=== PATIENT | male | born 2000 | race American Indian/Alaskan Native ===

== ENCOUNTER 2022-05-24 02:31 | Emergency (ER) | payer SELFPAY ==
--- NOTE | 2022-05-24 04:06 | XRay Report ---
CHEST 2 VIEWS INDICATION / CLINICAL INFORMATION: ASTHMA. COMPARISON: None available. FINDINGS: SUPPORT DEVICES: None. HEART / MEDIASTINUM: No significant abnormality. LUNGS / PLEURA: Mild pulmonary hyperinflation, likely associated with asthma. No other acute chest pr ocess. No pneumothorax. The lungs are otherwise clear without evidence for pneumonia, pulmonary edema or pleural effusion. ADDITIONAL FINDINGS: None IMPRESSION: 1. Mild pulmonary hyperinflation, likely associated with asthma. No other acute chest process. Signer Name: Viktor Huang MD Signed: 05/24/2022 4:01 AM Workstation Name: [id number]
[2022-05-24] MEDS ORDERED: dexAMETHasone 4 MG/ML VIAL IM ONE (06:53)
[2022-05-24] MEDS ORDERED: ALBUTEROL 2.5 MG/3 ML NEBU IH ONE (06:53)
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
[2022-05-24 08:07] VITALS: BP 122/78
== END 2022-05-24 08:06 | disposition home or self-care (01) ==
LOC: ED 02:31
DX: J45.901 Unspecified asthma with (acute) exacerbation (principal); F17.200 Nicotine dependence, unspecified, uncomplicated
CPT/HCPCS: 71046; 94640; 96372; 99283; J1100; 94644